=== PATIENT | male | born 1980 | race Hispanic/Latino ===

== ENCOUNTER 2022-09-11 20:13 | Emergency (ER) | payer SELFPAY ==
[~2022-09-11] VITALS: Ht 167.6 cm; Wt 90.0 kg
[2022-09-11] MEDS ORDERED: VIBRAMYCIN100 M2 PO (21:55)
[2022-09-11] MEDS ORDERED: ACYCLOVIR800 MG PO (21:55)
[2022-09-11 22:06] LABS: URINE BILIRUBIN - DIPSTICK NEGATIVE (NEGATIVE); URINE BLOOD DIPSTICK TRACE-INTACT (NEGATIVE); URINE COLOR YELLOW; URINE GLUCOSE - DIPSTICK >=1000 mg/dL (NEGATIVE); URINE KETONE NEGATIVE (NEGATIVE); URINE LEUK ESTERASE NEGATIVE (NEGATIVE); URINE PROTEIN - DIPSTICK TRACE mg/dL (NEG-TRACE); URINE SPECIFIC GRAVITY >=1.030
[2022-09-11 22:11] LABS: URINE NITRITE - DIPSTICK NEGATIVE (Negative)
[2022-09-11 22:33] VITALS: BP 126/83
== END 2022-09-11 22:37 | disposition home or self-care (01) | DRG 728 ==
LOC: ED 20:13
PROVIDERS: Emergency Medicine
DX: A60.01 Herpesviral infection of penis (principal)

== ENCOUNTER 2022-09-26 09:41 | Emergency (ER) | payer SELFPAY ==
[~2022-09-26] VITALS: Ht 167.6 cm; Wt 81.6 kg
[~2022-09-26 09:41] MED LIST: ACYCLOVIR800 MG PO; VIBRAMYCIN100 M2 PO
[2022-09-26 10:08] LABS: BASO% 0.7 % (0-3); EOS% 0.7 % (0-8); HEMATOCRIT 44.4 % (39.0-50.0); HEMOGLOBIN 15.2 g/dl (14.0-18.0); IMMATURE GRANULOCYTES 0.2 % (0.0-5.0); LYMPH% 34.7 % (15-41); MEAN CELL VOLUME 91.9 fL CALC (80.0-100.0); MEAN CORPUSCULAR HGB 31.5 pG CALC (26.0-32.0); MEAN CORPUSCULAR HGB CONC 34.2 g/dL CAL (32.0-36.0); NEUT# 3.45 thou/uL (1.82-7.42); NEUT% 57.7 % (42-76); RED BLOOD COUNT 4.83 mill/uL (4.70-6.10); RED CELL DISTRI WIDTH 12.3 % (11.5-15.5)
[2022-09-26 11:13] LABS: ALBUMIN 4.5 g/dL (3.2-5.0); ALKALINE PHOSPHATASE 88 u/l (38-126); ANION GAP 15 (6-22 (CALC)); BILIRUBIN, TOTAL 1.5 mg/dL (0.2-1.3); BUN 7 mg/dL (9-20); BUN/CREATININE RATIO 10 (12-20 (CALC)); CARBON DIOXIDE 24 mmol/l (22-30); CHLORIDE 100 mmol/l (95-108); CREATININE 0.7 mg/dL (0.7-1.3); GFR FOR AFR.AMER. > 60 ML/MIN (>=60 (CALC)); GFR OTHER RACES > 60 ML/MIN (>=60 (CALC)); POTASSIUM 3.2 mmol/l (3.5-5.1); SGOT/AST 49 u/l (17-59); SODIUM 136 mmol/l (137-146); TOTAL PROTEIN 7.9 g/dL (6.3-8.2)
[2022-09-26] MEDS ORDERED: METFORMIN500 M2 PO (12:19)
[2022-09-26] MEDS ORDERED: GLIPIZIDE5 M2 PO (12:19)
[2022-09-26] MEDS ORDERED: CEPHALEXIN500 M1 PO (12:20)
[2022-09-26 12:35] VITALS: BP 160/91
== END 2022-09-26 12:35 | disposition home or self-care (01) | DRG 696 ==
LOC: ED 09:41
PROVIDERS: Family Medicine
DX: R36.9 Urethral discharge, unspecified (principal); E11.9 Type 2 diabetes mellitus without complications; B95.1 Streptococcus, group B, as the cause of diseases classified elsewhere